=== PATIENT | male | born 1990 | race Caucasian/White ===

== ENCOUNTER 2021-05-21 12:48 | Emergency (ER) | payer OTHER, MEDICAID, SELFPAY ==
[2021-05-21 13:33] VITALS: BP 131/80; PULSE 96; RESP 22; TEMP 36.4; O2SAT 99
--- NOTE | 2021-05-21 15:34 | ED_ITS ---
HPI - Wound/Laceration <Dimitry Lockett PA-C - Last Filed: 05/21/21 19:25> General Chief Complaint: Wound/Laceration Stated Complaint: Right hand lac Time Seen by Provider: 05/21/21 15:06 Source: patient Mode of arrival: Ambulatory History of Present Illness HPI narrative: Patient is a 30-year-old male presenting to the emergency department today for an evaluation of a right hand laceration. Patient states that he sustained a laceration from a metal fence while he was attempting to hop over the fence. Of note, patient does not know the date of his most recent tetanus shot. Patient denies fever, chills, chest pain, cough, shortness of breath, nausea, vomiting, diarrhea, abdominal pain, dysuria, hematuria, or numbness and tingling in the bilateral upper extremities. No other concerns were voiced at this time. Review of Systems <Dimitry Lockett PA-C - Last Filed: 05/21/21 19:25> Constitutional Constitutional: Denies chills, Denies fatigue, Denies fever(s), Denies frequent falls, Denies lethargy and Denies weakness Eyes Eyes: Denies loss of vision ENT Ears, Nose, Mouth, and Throat: Denies dizziness and Denies neck pain Cardiovascular Cardiovascular: Denies chest pain, Denies irregular heart rhythm, Denies lightheadedness, Denies palpitations, Denies dyspnea, Denies dyspnea on exertion and Denies orthopnea Respiratory Respiratory: Denies cough, Denies dyspnea, Denies dyspnea on exertion and Denies wheezing Gastrointestinal Gastrointestinal: Denies abdominal pain, Denies change in bowel habits, Denies diarrhea, Denies nausea and Denies vomiting Genitourinary Genitourinary: Denies hematuria, Denies flank pain, Denies urinary incontinence and Denies urinary urgency Musculoskeletal Musculoskeletal: Denies back pain, Denies muscle weakness, Denies neck pain, Denies numbness and Denies tingling Integumentary/Breasts Skin/Breast: Denies pruritus, Denies erythema, Denies rash and Reports wounds (Right hand laceration) Neurologic Neurologic: Denies behavioral changes, Denies confusion, Denies dizziness, Denies frequent falls, Denies loss of vision, Denies numbness, Denies tingling and Denies weakness Psychiatric Psychiatric: Denies behavioral changes and Denies confusion Endocrine Endocrine: Denies fatigue and Denies palpitations Allergic/Immunologic Allergic/Immunologic: Denies wheezing Patient History <Dimitry Lockett PA-C - Last Filed: 05/21/21 19:25> Social History Smoking Status: Current every day smoker Smoking Status: Current every day smoker Exam <Dimitry Lockett PA-C - Last Filed: 05/21/21 19:25> Narrative Exam Narrative: GENERAL: [] year old patient appears stated age. Well-developed patient, in mild distress. HEAD: Atraumatic. Normocephalic. EYES: Pupils equal round and reactive. Extraocular motions intact. No scleral icterus. No injection or drainage. ENT: Nose without bleeding, purulent drainage. Throat without erythema, tonsillar hypertrophy or exudate. Airway patent. NECK: Trachea midline. Non tender CARDIOVASCULAR: Regular rate and rhythm without murmurs, gallops, or rubs. RESPIRATORY: Clear to auscultation. Breath sounds equal bilaterally. No wheezes, rales, or rhonchi. GASTROINTESTINAL: Abdomen soft, non-tender, nondistended. EXTREMITIES: No edema or joint tenderness. BACK: Nontender without deformity or crepitance. No flank tenderness. NEURO: AOx3. SKIN: No rash or erythema of visible areas. Approximately 2 cm linear lace ration to the right hand over the palmar aspect, over the distal 5th metacarpal. No surrounding erythema. No foreign body appreciated throughout the laceration, no other mentis involvement, no bone exposure. Initial Vital Signs Initial Vital Signs: Vital Signs Temperature 97.5 F L 05/21/21 13:33 Pulse Rate 96 H 05/21/21 13:33 Respiratory Rate 22 05/21/21 13:33 Blood Pressure 131/80 05/21/21 13:33 Pulse Oximetry 99 05/21/21 13:33 <Echo Mojica MD - Last Filed: 05/28/21 07:34> Initial Vital Signs Initial Vital Signs: Vital Signs Temperature 97.5 F L 05/21/21 13:33 Pulse Rate 96 H 05/21/21 13:33 Respiratory Rate 22 05/21/21 13:33 Blood Pressure 131/80 05/21/21 13:33 Pulse Oximetry 99 05/21/21 13:33 Procedures <Dimitry Lockett PA-C - Last Filed: 05/21/21 19:25> Laceration Repair Laceration 1: Time of procedure: 16:36 Site: hand Side (If applicable): right Size (cm): 2 Description: linear Depth: simple, single layer Local Anesthetic: lidocaine 1% Amount of anesthesia used (mL): 5 Pre-repair: wound explored, irrigated extensively and deep structures intact Skin layer closed with: nylon Size (cm): 5-0 Number of sutures: 8 Technique: simple, interrupted Course <Dimitry Lockett PA-C - Last Filed: 05/21/21 19:25> Course Course Narrative: Tdap ordered. Laceration explored and prepared for repair. Orders Ordered: Discontinued Medications Diphtheria/Tetanus/Acell Pertussis (Diph,Pertuss(Acell),Tet Vac/Pf 0.5 Ml Syringe) 0.5 ml IM .ONCE ONE Stop: 05/21/21 15:36 Last Admin: 05/21/21 15:50 Dose: Not Given Documented by: TASHIA Diphtheria/Tetanus/Acell Pertussis (Tet,Diph,Pertuss(Acell),Vac/Pf 0.5 Ml Syringe) 0.5 ml IM .ONCE ONE Stop: 05/21/21 15:52 Last Admin: 05/21/21 15:59 Dose: 0.5 ml Documented by: TASHIA Lidocaine/Sodium Bicarbonate (Lido 1%/Sod Bicarb 8.4% (10ml) 10 Ml Syringe) 10 ml INJ NOW ONE Stop: 05/21/21 15:33 Last Admin: 05/21/21 15:59 Dose: 10 ml Documented by: TASHIA Vital Signs Vital signs: Vital Signs - 8 hr 05/21/21 13:33 Temperature 97.5 F L Pulse Rate 96 H Respiratory Rate 22 Blood Pressure 131/80 Pulse Oximetry 99 <Echo Mojica MD - Last Filed: 05/28/21 07:34> Orders Ordered: Discontinued Medications Diphtheria/Tetanus/Acell Pertussis (Diph,Pertuss(Acell),Tet Vac/Pf 0.5 Ml Syringe) 0.5 ml IM .ONCE ONE Stop: 05/21/21 15:36 Last Admin: 05/21/21 15:50 Dose: Not Given Documented by: TASHIA Diphtheria/Tetanus/Acell Pertussis (Tet,Diph,Pertuss(Acell),Vac/Pf 0.5 Ml Syringe) 0.5 ml IM .ONCE ONE Stop: 05/21/21 15:52 Last Admin: 05/21/21 15:59 Dose: 0.5 ml Documented by: TASHIA Lidocaine/Sodium Bicarbonate (Lido 1%/Sod Bicarb 8.4% (10ml) 10 Ml Syringe) 10 ml INJ NOW ONE Stop: 05/21/21 15:33 Last Admin: 05/21/21 15:59 Dose: 10 ml Documented by: TASHIA Vital Signs Vital signs: Vital Signs - 8 hr 05/21/21 13:33 Temperature 97.5 F L Pulse Rate 96 H Respiratory Rate 22 Blood Pressure 131/80 Pulse Oximetry 99 MDM - Wound/Laceration <Dimitry Lockett PA-C - Last Filed: 05/21/21 19:25> MDM Narrative Medical decision making narrative: To consider superficial skin laceration versus deep laceration versus cellulitis. Overall physical examination, history is during. Linear laceration was closed with 5 0 nylon sutures. Suture care instructions were provided to the patient prior to discharge. At this time patient feels comfortable being discharged home with strict return precautions discussed prior to discharge. Discharge Plan Departure Patient Disposition: Home Clinical Impression: Laceration Instructions: DI for Laceration Repair Activity Restrictions/Additional Instructions: *You have been diagnosed with right hand laceration *What to do: *Please continue to take your regular medications as directed. [ ] New medication prescriptions sent to your pharmacy: [ ] [ ] New medication written as a paper prescription [X] No new medications given *Please follow up with your primary care provider in 2-3 days, call for an appointment. Let them know you were seen in the Emergency Department and that we ask that you be seen in follow up. We will electronically transmit a record of today's note if your PCP is in our system. *Please keep the laceration dry. Clean with soap and water and pat dry. Avoid soaking the laceration until completely healed. Sutures should remain in place for 10-14 days. They can be removed here in the emergency department, at Urgent Care, or with the primary care provider. *If you do not have a primary care provider please contact the [facility] Resource line at [phone]. They will ask some questions about your medical history and help get you set up with a doctor in the community. *Return to Emergency Department if you should have any new, worsening or concerning symptoms, such as [fever greater than 101 F, shaking chills, worsening pain, persistent vomiting or other bothersome symptoms] <Echo Mojica MD - Last Filed: 05/28/21 07:34> Cosign ED Attending Cosignature Attestation: I was immediately available in the department for consultation throughout this patient's visit. I agree with documentation as above. Echo Mojica MD
[2021-05-21] MEDS: LIDO 1%/SOD BICARB 8.4% (10ML) 10 ML SYRINGE INJ (15:59)
[2021-05-21] MEDS: TET,DIPH,PERTUSS(ACELL),VAC/PF 0.5 ML SYRINGE IM (15:59)
== END 2021-05-21 16:44 | disposition home or self-care (01) ==
PROVIDERS: Emergency Provider Physician Assistant
DX: S61.411A Laceration without foreign body of right hand, initial encounter (principal); F17.200 Nicotine dependence, unspecified, uncomplicated; Z23 Encounter for immunization; W45.8XXA Other foreign body or object entering through skin, initial encounter; Y93.89 Activity, other specified
CPT/HCPCS: 12001; 90471; 99282; 99283; 90715